=== PATIENT | female | born 1990 | race Caucasian/White ===

== ENCOUNTER 2017-12-17 09:04 | Outpatient (CLI) ==
--- NOTE | 2017-12-17 09:46 | US ---
EXAM: Right upper quadrant abdominal ultrasound. History: Elevated liver enzymes. Technique: Multiple sonographic images through the abdomen were obtained. Color duplex Doppler was used to interrogate vascular flow. Findings: Visualized pancreas demonstrates no gross abnormality. No abdominal ascites. The liver i s diffusely echogenic. There is antegrade flow within the main portal vein. No focal liver lesions identified sonographically. Limited visualization of the right kidney demonstrates no evidence for h ydronephrosis. No shadowing gallstones. Gallbladder wall is not thickened. Common bile duct measur es 0.4 cm in caliber. Impression: Hepatic steatosis
== END 2017-12-17 09:05 | disposition home or self-care (01) ==
LOC: RAD 09:04
PROVIDERS: ATTEND Family Medicine
DX: R74.8 Abnormal levels of other serum enzymes (principal)

== ENCOUNTER 2018-09-10 12:22 | Outpatient (CLI) ==
--- NOTE | 2018-09-10 13:00 | CT ---
EXAM: CT BRAIN HISTORY: Head injury, fall TECHNIQUE: CT brain without intravenous contrast. 5-mm axial sections with Reformations. COMPARISON: None FINDINGS: Brain is unremarkable without evidence of hemorrhage or large vessel distribution recent ischemic in farction. There is no suggestion of acute hydrocephalus or subdural fluid collection. No mass or ma ss effect. Cranium has no acute finding. Mastoid processes are aerated. The visualized paranasal sinuses are clear. IMPRESSION: No acute intracranial process. No fractures.
== END 2018-09-10 12:23 | disposition home or self-care (01) ==
LOC: RAD 12:22
PROVIDERS: ATTEND Physician Assistant
DX: S09.90XA Unspecified injury of head, initial encounter (principal)